=== PATIENT | female | born 1950 | race Caucasian/White ===

== ENCOUNTER → 2017-12-25 | Outpatient (CLI) | payer MEDICARE, OTHER ==
[~2017-12-25] MED LIST: ASPI81TA50 PO; CIPR500T87 PO; CITA20TA5 PO; CLON2TAB PO; DIAZ5TAB4 PO; DOCU-131 PO; ERGO500017 PO; FAMO-79 PO; FLUC50TA3 PO; INSU100I28 SQ-INSULIN; LEVO112T41 PO; LOVA40TA2 PO; METO10TA2 PO; METR500T PO; MORP15TA17 PO; MORP60TA34 PO; OXYC-302 PO; POTA20TA91 PO; PRED5TAB PO; PREG100C PO; TIZA4CAP PO
[2017-12-25 15:29] LABS: BASOPHILS # (AUTO) 0.19 x10^3/uL (0-0.1); BASOPHILS % (AUTO) 2 % (0-1); EOSINOPHILS # (AUTO) 0.38 x10^3/uL (0-0.4); EOSINOPHILS % (AUTO) 3 % (1-7); LYMPHOCYTES % (AUTO) 16 % (22-44); MD NO; MEAN CORPUSCULAR HEMOGLOBIN 23.2 pg (27.0-34.8); MEAN CORPUSCULAR HGB CONC 30.6 g/dL (32.4-35.8); MEAN CORPUSCULAR VOLUME 75.8 fL (80-100); MEAN PLATELET VOLUME 9.3 fL (7.4-10.4); MONOCYTES # (AUTO) 0.64 x10^3/uL (0.2-0.8); MONOCYTES % (AUTO) 5 % (2-9); NEUTROPHILS # (AUTO) 9.49 x10^3/uL (1.8-6.8); NEUTROPHILS % (AUTO) 75 % (42-75); PLATELET COUNT 434 x10^3/uL (130-400); RED BLOOD COUNT 3.33 x10^6/uL (3.82-5.3); RED CELL DISTRIBUTION WIDTH 17.9 % (9.6-15.2)
[2017-12-25 15:41] LABS: ALBUMIN 3.3 g/dL (3.4-5.0); ANION GAP 11 mmol/L (5-15); CALCIUM 8.7 mg/dL (8.5-10.1); CHLORIDE 97 mmol/L (98-107)
[2017-12-25 15:54] LABS: ALANINE AMINOTRANSFERASE 14 U/L (12-78); ALKALINE PHOSPHATASE 99 U/L (45-117); BILIRUBIN,TOTAL 0.5 mg/dL (0.2-1.0); CREATININE 0.71 mg/dL (0.55-1.02); T4 (THYROXINE) 8.3 mcg/dL (4.8-13.9); TOTAL PROTEIN 8.4 g/dL (6.4-8.2)
== END | disposition home or self-care (01) ==
LOC: CFH 12:12
PROVIDERS: ATTEND Nurse Practitioner Family
DX: I51.7 Cardiomegaly (principal); M47.894 Other spondylosis, thoracic region; D64.9 Anemia, unspecified; E03.9 Hypothyroidism, unspecified
CPT/HCPCS: 36415; 71046; 80053; 82565; 84436; 84443; 85025

== ENCOUNTER 2018-01-07 22:41 | Inpatient (IN) | payer MEDICARE, OTHER ==
[~2018-01-07] VITALS: Ht 149.9 cm; Wt 78.5 kg
[2018-01-07] MEDS ORDERED: CYAN50TA PO (23:02)
[2018-01-07] MEDS ORDERED: LEVO25TA4 PO (23:03)
[2018-01-08 00:09] LABS: MEAN CORPUSCULAR HEMOGLOBIN 22.8 pg (27.0-34.8); MEAN CORPUSCULAR HGB CONC 31.2 g/dL (32.4-35.8); MEAN CORPUSCULAR VOLUME 72.8 fL (80-100); MEAN PLATELET VOLUME 8.8 fL (7.4-10.4); PLATELET COUNT 484 x10^3/uL (130-400); RED BLOOD COUNT 2.45 x10^6/uL (3.82-5.3); RED CELL DISTRIBUTION WIDTH 18.6 % (9.6-15.2)
[2018-01-08 00:11] LABS: INTERNATIONAL NORMALIZED RATIO 1.05 (0.93-1.1); PROTHROMBIN TIME 10.8 Seconds (9.6-11.5)
[2018-01-08 00:14] LABS: ALANINE AMINOTRANSFERASE 10 U/L (12-78); ALBUMIN 2.8 g/dL (3.4-5.0); ANION GAP 11 mmol/L (5-15); CALCIUM 7.8 mg/dL (8.5-10.1); CHLORIDE 99 mmol/L (98-107); CREATININE 0.66 mg/dL (0.55-1.02)
[2018-01-08 00:16] LABS: ALKALINE PHOSPHATASE 95 U/L (45-117); BILIRUBIN,TOTAL 0.4 mg/dL (0.2-1.0); TOTAL PROTEIN 7.2 g/dL (6.4-8.2)
[2018-01-08 00:22] LABS: BASOPHILS # (AUTO) 0.09 x10^3/uL (0-0.1); BASOPHILS % (AUTO) 1 % (0-1); EOSINOPHILS # (AUTO) 0.04 x10^3/uL (0-0.4); EOSINOPHILS % (AUTO) 0 % (1-7); LYMPHOCYTES % (AUTO) 9 % (22-44); MD SCAN; MONOCYTES # (AUTO) 0.83 x10^3/uL (0.2-0.8); MONOCYTES % (AUTO) 4 % (2-9); NEUTROPHILS # (AUTO) 17.25 x10^3/uL (1.8-6.8); NEUTROPHILS % (AUTO) 87 % (42-75)
[2018-01-08] MEDS ORDERED: OXYMETAZOLINE NASAL SPRAY 0.05%, 15ML NAS ONE (02:00)
[2018-01-08] MEDS ORDERED: OXYMETAZOLINE NASAL SPRAY 0.05%, 15ML ONE (02:16)
[2018-01-08] MEDS ORDERED: GLUCAGON 1 MG IM PRN (03:30)
[2018-01-08] MEDS ORDERED: ONDANSETRON 2MG/ML, 2ML IVPush PRN (03:30)
[2018-01-08] MEDS ORDERED: DEXTROSE 50%, 50ML SYRINGE IVPush PRN (03:30)
[2018-01-08] MEDS ORDERED: DEXTROSE 4 GM TAB.CHEW PO PRN (03:30)
[2018-01-08] MEDS ORDERED: ACETAMINOPHEN 325 MG TABLET PO PRN (03:30)
[2018-01-08 03:41] VITALS: BP 101/60
[2018-01-08] MEDS: SODIUM CHLORIDE 0.9% 1,000 ML IV SCH ×2 (04:31→14:49)
[2018-01-08 05:31] LABS: BASOPHILS # (AUTO) 0.06 x10^3/uL (0-0.1); BASOPHILS % (AUTO) 0 % (0-1); EOSINOPHILS % (AUTO) 2 % (1-7); LYMPHOCYTES % (AUTO) 10 % (22-44); MD NO; MEAN CORPUSCULAR HEMOGLOBIN 22.5 pg (27.0-34.8); MEAN CORPUSCULAR HGB CONC 31.1 g/dL (32.4-35.8); MEAN CORPUSCULAR VOLUME 72.5 fL (80-100); MEAN PLATELET VOLUME 7.7 fL (7.4-10.4); MONOCYTES # (AUTO) 0.92 x10^3/uL (0.2-0.8); MONOCYTES % (AUTO) 4 % (2-9); NEUTROPHILS # (AUTO) 17.73 x10^3/uL (1.8-6.8); NEUTROPHILS % (AUTO) 84 % (42-75); PLATELET COUNT 496 x10^3/uL (130-400); RED BLOOD COUNT 2.19 x10^6/uL (3.82-5.3); RED CELL DISTRIBUTION WIDTH 18.6 % (9.6-15.2)
[2018-01-08 05:35] LABS: CULTURE INDICATED? YES; MICROSCOPIC INDICATED
[2018-01-08 05:43] LABS: TROPONIN I < 0.015 ng/mL (0.000-0.045)
[2018-01-08] MEDS: INSULIN LISPRO 100 UNITS/ML, PEN SQ-INSULIN SCH ×4 (07:00→20:56)
[2018-01-08 07:02] VITALS: BP 108/71
[2018-01-08] MEDS: LEVOTHYROXINE 25 MCG TABLET PO SCH (09:55)
[2018-01-08] MEDS: CYANOCOBALOMIN 100MCG TABLET PO SCH (09:55)
[2018-01-08] MEDS: IRON SUCROSE COMPLEX 100MG/5ML IV SCH (09:55)
[2018-01-08 11:48] LABS: TROPONIN I < 0.015 ng/mL (0.000-0.045)
[2018-01-08 13:48] VITALS: BP 112/78
[2018-01-08] MEDS: SODIUM CHLORIDE FLUSH 10ML SYR IVF SCH ×2 (14:48→20:55)
[2018-01-08] MEDS: CEFTRIAXONE PMX 1GM/50ML 50 ML IV SCH (16:16)
[2018-01-08 20:02] VITALS: BP 101/65
[2018-01-08] MEDS: SODIUM CHLORIDE NASAL SPRAY 45ML BOTTLE NAS PRN (22:44)
[2018-01-09 00:13] VITALS: BP 97/58
[2018-01-09] MEDS: SODIUM CHLORIDE 0.9% 1,000 ML IV SCH ×3 (02:17→22:34)
[2018-01-09 05:06] LABS: MEAN CORPUSCULAR HEMOGLOBIN 22.7 pg (27.0-34.8); MEAN CORPUSCULAR HGB CONC 30.9 g/dL (32.4-35.8); MEAN CORPUSCULAR VOLUME 73.7 fL (80-100); MEAN PLATELET VOLUME 8.7 fL (7.4-10.4); PLATELET COUNT 414 x10^3/uL (130-400); RED BLOOD COUNT 1.99 x10^6/uL (3.82-5.3); RED CELL DISTRIBUTION WIDTH 19.2 % (9.6-15.2)
[2018-01-09 05:17] LABS: ANION GAP 6 mmol/L (5-15); CALCIUM 7.7 mg/dL (8.5-10.1); CHLORIDE 106 mmol/L (98-107)
[2018-01-09] MEDS: SODIUM CHLORIDE NASAL SPRAY 45ML BOTTLE NAS PRN (05:37)
[2018-01-09 05:45] LABS: % IRON SATURATION 80 % (20-55); CREATININE 0.59 mg/dL (0.55-1.02); FOLATE LEVEL 16.7 ng/mL (3.1-17.5); IRON LEVEL 325 mcg/dL (50-170); TOTAL IRON BINDING CAPACITY 406 mcg/dL (250-450)
[2018-01-09 05:46] LABS: BASOPHILS # (AUTO) 0.06 x10^3/uL (0-0.1); BASOPHILS % (AUTO) 0 % (0-1); EOSINOPHILS # (AUTO) 0.22 x10^3/uL (0-0.4); EOSINOPHILS % (AUTO) 1 % (1-7); LYMPHOCYTES # (AUTO) 3.17 x10^3/uL (1-3.4); LYMPHOCYTES % (AUTO) 20 % (22-44); MD MORPH REVIEW ONLY; MONOCYTES % (AUTO) 6 % (2-9); NEUTROPHILS # (AUTO) 11.25 x10^3/uL (1.8-6.8); NEUTROPHILS % (AUTO) 72 % (42-75)
[2018-01-09 05:47] LABS: <PLATELET ESTIMATE> INCREASED; <PLT MORPHOLOGY> NORMAL PLT MORPH; ANISOCYTOSIS 1+; HYPOCHROMIA 1+; MICROCYTOSIS 1+; POLYCHROMASIA 1+; STOMATOCYTES 1+
[2018-01-09] MEDS: INSULIN LISPRO 100 UNITS/ML, PEN SQ-INSULIN SCH ×4 (07:00→20:56)
[2018-01-09 07:58] VITALS: BP 99/58
[2018-01-09] MEDS: CYANOCOBALOMIN 100MCG TABLET PO SCH (08:06)
[2018-01-09] MEDS: IRON SUCROSE COMPLEX 100MG/5ML IV SCH (08:07)
[2018-01-09] MEDS: SODIUM CHLORIDE FLUSH 10ML SYR IVF SCH ×2 (08:07→20:56)
[2018-01-09] MEDS: LEVOTHYROXINE 25 MCG TABLET PO SCH (08:07)
[2018-01-09] MEDS: CEFTRIAXONE PMX 1GM/50ML 50 ML IV SCH (14:17)
[2018-01-09 14:30] VITALS: BP 94/59
[2018-01-09 20:35] VITALS: BP 92/59
[2018-01-10 00:20] VITALS: BP 91/57
[2018-01-10 05:56] LABS: MEAN CORPUSCULAR HEMOGLOBIN 22.8 pg (27.0-34.8); MEAN CORPUSCULAR HGB CONC 30.7 g/dL (32.4-35.8); MEAN CORPUSCULAR VOLUME 74.3 fL (80-100); MEAN PLATELET VOLUME 7.9 fL (7.4-10.4); PLATELET COUNT 397 x10^3/uL (130-400); RED BLOOD COUNT 1.97 x10^6/uL (3.82-5.3); RED CELL DISTRIBUTION WIDTH 18.8 % (9.6-15.2)
[2018-01-10 06:27] LABS: MD MORPH REVIEW ONLY
[2018-01-10 06:28] LABS: BASOPHILS # (AUTO) 0.06 x10^3/uL (0-0.1); BASOPHILS % (AUTO) 0 % (0-1); EOSINOPHILS # (AUTO) 0.51 x10^3/uL (0-0.4); EOSINOPHILS % (AUTO) 3 % (1-7); LYMPHOCYTES # (AUTO) 2.88 x10^3/uL (1-3.4); LYMPHOCYTES % (AUTO) 18 % (22-44); MONOCYTES # (AUTO) 0.84 x10^3/uL (0.2-0.8); MONOCYTES % (AUTO) 5 % (2-9); NEUTROPHILS # (AUTO) 11.95 x10^3/uL (1.8-6.8); NEUTROPHILS % (AUTO) 74 % (42-75)
[2018-01-10 06:31] LABS: ANISOCYTOSIS 2+; MICROCYTOSIS 1+
[2018-01-10 06:32] LABS: POLYCHROMASIA 2+
[2018-01-10 06:33] LABS: <PLATELET ESTIMATE> ADEQUATE; <PLT MORPHOLOGY> NORMAL PLT MORPH; HYPOCHROMIA 2+
[2018-01-10] MEDS: INSULIN LISPRO 100 UNITS/ML, PEN SQ-INSULIN SCH ×4 (07:00→20:56)
[2018-01-10 07:40] VITALS: BP 100/60
[2018-01-10] MEDS ORDERED: MAALOX/HYOSCYAMINE/LIDOCAINE 45 ML BTL PO ONE (08:00)
[2018-01-10] MEDS: LEVOTHYROXINE 25 MCG TABLET PO SCH (08:21)
[2018-01-10] MEDS: CYANOCOBALOMIN 100MCG TABLET PO SCH (08:22)
[2018-01-10 08:41] LABS: TROPONIN I < 0.015 ng/mL (0.000-0.045)
[2018-01-10 08:47] LABS: MD YES; MEAN CORPUSCULAR HEMOGLOBIN 23.1 pg (27.0-34.8); MEAN CORPUSCULAR VOLUME 74.4 fL (80-100); PLATELET COUNT 401 x10^3/uL (130-400); RED BLOOD COUNT 2.02 x10^6/uL (3.82-5.3)
[2018-01-10] MEDS: SODIUM CHLORIDE FLUSH 10ML SYR IVF SCH ×2 (09:00→20:56)
[2018-01-10 10:50] LABS: BAND#(MANUAL) 0.15 x10^3/uL; BANDS%(MANUAL) 1 % (0-7); BASOS#(MANUAL) 0.15 x10^3/uL (0-0.1); BASOS% (MANUAL) 1 % (0-1); LYMPH#(MANUAL) 2.04 x10^3/uL (1-3.4); LYMPHS% (MANUAL) 14 % (22-44); MONOS#(MANUAL) 0.73 x10^3/uL (0.3-2.7); MONOS% (MANUAL) 5 % (2-9); NRBC % (MANUAL) 1 % (0-1); SEG#(MANUAL) 11.53 x10^3/uL (1.8-6.8); SEGS% (MANUAL) 79 % (42-75)
[2018-01-10 10:51] LABS: ANISOCYTOSIS 2+; MICROCYTOSIS 1+
[2018-01-10 10:52] LABS: <PLATELET ESTIMATE> INCREASED; <PLT MORPHOLOGY> NORMAL PLT MORPH; HYPOCHROMIA 2+; POLYCHROMASIA 1+
[2018-01-10] MEDS: CEFUROXIME 500 MG TABLET PO SCH ×2 (10:57→20:56)
[2018-01-10 13:35] VITALS: BP 100/63
[2018-01-10 19:22] VITALS: BP 109/64
[2018-01-11 00:05] VITALS: BP 113/72
[2018-01-11] MEDS ORDERED: SODIUM CHLORIDE 0.9% 1,000 ML IV SCH (03:14)
[2018-01-11] MEDS: INSULIN LISPRO 100 UNITS/ML, PEN SQ-INSULIN SCH ×2 (07:00→11:00)
[2018-01-11 07:45] VITALS: BP 95/54
[2018-01-11] MEDS: SODIUM CHLORIDE FLUSH 10ML SYR IVF SCH (08:01)
[2018-01-11] MEDS: CEFUROXIME 500 MG TABLET PO SCH (08:17)
[2018-01-11] MEDS: CYANOCOBALOMIN 100MCG TABLET PO SCH (08:18)
[2018-01-11] MEDS: LEVOTHYROXINE 25 MCG TABLET PO SCH (08:18)
[2018-01-11] MEDS ORDERED: CIPROFLOXACIN 500 MG TABLET PO SCH (09:00)
[2018-01-11 10:06] LABS: MEAN CORPUSCULAR HEMOGLOBIN 23.7 pg (27.0-34.8); MEAN CORPUSCULAR HGB CONC 30.5 g/dL (32.4-35.8); MEAN CORPUSCULAR VOLUME 77.7 fL (80-100); MEAN PLATELET VOLUME 8.6 fL (7.4-10.4); PLATELET COUNT 402 x10^3/uL (130-400); RED BLOOD COUNT 2.01 x10^6/uL (3.82-5.3); RED CELL DISTRIBUTION WIDTH 19.4 % (9.6-15.2)
[2018-01-11 10:30] LABS: MD YES
[2018-01-11 10:31] LABS: BAND#(MANUAL) 0.16 x10^3/uL; BANDS%(MANUAL) 1 % (0-7); BASOS#(MANUAL) 0.16 x10^3/uL (0-0.1); BASOS% (MANUAL) 1 % (0-1); EOS#(MANUAL) 0.32 x10^3/uL (0.0-0.4); EOS% (MANUAL) 2 % (1-7); LYMPH#(MANUAL) 2.56 x10^3/uL (1-3.4); LYMPHS% (MANUAL) 16 % (22-44); MONOS#(MANUAL) 0.32 x10^3/uL (0.3-2.7); MONOS% (MANUAL) 2 % (2-9); SEG#(MANUAL) 12.48 x10^3/uL (1.8-6.8); SEGS% (MANUAL) 78 % (42-75)
[2018-01-11 10:32] LABS: <PLATELET ESTIMATE> INCREASED; <PLT MORPHOLOGY> NORMAL PLT MORPH; ANISOCYTOSIS 2+; HYPOCHROMIA 2+; MICROCYTOSIS 1+; POLYCHROMASIA 1+; STOMATOCYTES 1+
[2018-01-11] MEDS ORDERED: CIPR500T87 PO ×2 (11:19→12:13)
== END 2018-01-11 14:11 | disposition home or self-care (01) | DRG 150 ==
LOC: ED 23:59 → SUATTDRO 01-08 02:58 → EDIP 01-08 03:06 → 4EST 01-08 03:32
PROVIDERS: ADMIT Hospitalist; ATTEND Hospitalist
PROC: 2Y41X5Z Packing of Nasal Region using Packing Material (ICD-10-PCS; principal; 2018-01-08)
DX: R04.0 Epistaxis (principal); E43 Unspecified severe protein-calorie malnutrition; I48.0 Paroxysmal atrial fibrillation; D62 Acute posthemorrhagic anemia; E87.1 Hypo-osmolality and hyponatremia; E11.65 Type 2 diabetes mellitus with hyperglycemia; G47.419 Narcolepsy without cataplexy; N39.0 Urinary tract infection, site not specified; E03.9 Hypothyroidism, unspecified; D50.9 Iron deficiency anemia, unspecified; E66.9 Obesity, unspecified; K21.9 Gastro-esophageal reflux disease without esophagitis; R55 Syncope and collapse; R79.89 Other specified abnormal findings of blood chemistry; N20.0 Calculus of kidney; Z87.442 Personal history of urinary calculi; Z68.35 Body mass index [BMI] 35.0-35.9, adult; Z88.2 Allergy status to sulfonamides; Z88.8 Allergy status to other drugs, medicaments and biological substances; Z90.710 Acquired absence of both cervix and uterus; Z90.49 Acquired absence of other specified parts of digestive tract
CPT/HCPCS: 36415; 71045; 80048; 80053; 81001; 82607; 82746; 82962; 83036; 83540; 83550; 84484; 85025; 85610; 85730; 86850; 86900; 87040; 87077; 87086; 87186; 93005; 93306; 99285; J0696; J1756; J1815; J7030

== ENCOUNTER 2018-01-21 14:03 | Emergency (ER) | payer MEDICARE, OTHER ==
[~2018-01-21 14:03] MED LIST changes: +CYAN50TA PO; +LEVO25TA4 PO
[2018-01-21 14:45] LABS: INTERNATIONAL NORMALIZED RATIO 1.03 (0.93-1.1); PROTHROMBIN TIME 10.7 Seconds (9.6-11.5)
[2018-01-21 14:47] LABS: MEAN CORPUSCULAR HEMOGLOBIN 23.8 pg (27.0-34.8); MEAN CORPUSCULAR HGB CONC 30.3 g/dL (32.4-35.8); MEAN CORPUSCULAR VOLUME 78.7 fL (80-100); MEAN PLATELET VOLUME 8.7 fL (7.4-10.4); PLATELET COUNT 430 x10^3/uL (130-400); RED BLOOD COUNT 2.77 x10^6/uL (3.82-5.3); RED CELL DISTRIBUTION WIDTH 24.8 % (9.6-15.2)
[2018-01-21 14:48] LABS: HEMOGRAM NOTE RECHECKED
[2018-01-21 14:49] LABS: ALBUMIN 3.3 g/dL (3.4-5.0); ANION GAP 12 mmol/L (5-15); CALCIUM 8.5 mg/dL (8.5-10.1); CHLORIDE 107 mmol/L (98-107)
[2018-01-21] MEDS ORDERED: SILVER NITRATE STICK TP ONE (15:01)
[2018-01-21] MEDS ORDERED: LIDOCAINE-MPF 1%, 2ML ONE (15:01)
[2018-01-21] MEDS ORDERED: PHENYLEPHRINE NASAL 1%, 15ML SPRAY ONE (15:01)
[2018-01-21 15:02] LABS: MD YES
[2018-01-21 15:05] LABS: BAND#(MANUAL) 0.12 x10^3/uL; BANDS%(MANUAL) 1 % (0-7); LYMPH#(MANUAL) 0.86 x10^3/uL (1-3.4); LYMPHS% (MANUAL) 7 % (22-44); MONOS#(MANUAL) 0.37 x10^3/uL (0.3-2.7); MONOS% (MANUAL) 3 % (2-9); SEG#(MANUAL) 10.95 x10^3/uL (1.8-6.8); SEGS% (MANUAL) 89 % (42-75)
[2018-01-21 15:06] LABS: <PLATELET ESTIMATE> ADEQUATE; ANISOCYTOSIS 2+; HYPOCHROMIA 2+; MICROCYTOSIS 1+; POLYCHROMASIA 1+
[2018-01-21 15:07] LABS: <PLT MORPHOLOGY> NORMAL PLT MORPH
[2018-01-21 18:27] VITALS: BP 104/51
== END 2018-01-21 18:29 | disposition home or self-care (01) ==
LOC: ED 17:52
DX: R04.0 Epistaxis (principal); D50.0 Iron deficiency anemia secondary to blood loss (chronic); E11.9 Type 2 diabetes mellitus without complications; I48.91 Unspecified atrial fibrillation; K21.9 Gastro-esophageal reflux disease without esophagitis
CPT/HCPCS: 30901; 36415; 80048; 82040; 85025; 85610; 85730; 99284

== ENCOUNTER → 2019-01-07 | Outpatient (CLI) | payer MEDICARE, OTHER ==
[~2019-01-07] MED LIST changes: -CITA20TA5 PO; +CITA20TA6 PO
== END | disposition home or self-care (01) ==
LOC: CFH 12:42
PROVIDERS: ATTEND Family Medicine
DX: M81.8 Other osteoporosis without current pathological fracture (principal)

== ENCOUNTER → 2019-02-12 | Outpatient (CLI) | payer MEDICARE, OTHER | END | disposition home or self-care (01) | LOC: CFH 12:45 | PROVIDERS: ATTEND Family Medicine | DX: J81.1 Chronic pulmonary edema (principal); I51.7 Cardiomegaly; I50.9 Heart failure, unspecified; J98.4 Other disorders of lung | CPT/HCPCS: 71046 ==

== ENCOUNTER → 2019-03-22 | Outpatient (CLI) | payer MEDICARE, OTHER ==
[2019-03-22 15:53] LABS: HCT (SEDRATE) 45.2 % (34.6-47.8)
[2019-03-22 15:54] LABS: BASOPHILS # (AUTO) 0.06 x10^3/uL (0-0.1); BASOPHILS % (AUTO) 1 % (0-1); EOSINOPHILS # (AUTO) 0.46 x10^3/uL (0-0.4); EOSINOPHILS % (AUTO) 4 % (1-7); LYMPHOCYTES # (AUTO) 2.22 x10^3/uL (1-3.4); LYMPHOCYTES % (AUTO) 21 % (22-44); MD NO; MEAN CORPUSCULAR HEMOGLOBIN 29.3 pg (27.0-34.8); MEAN CORPUSCULAR HGB CONC 32.6 g/dL (32.4-35.8); MEAN CORPUSCULAR VOLUME 89.7 fL (80-100); MEAN PLATELET VOLUME 9.7 fL (7.4-10.4); MONOCYTES # (AUTO) 0.58 x10^3/uL (0.2-0.8); MONOCYTES % (AUTO) 6 % (2-9); NEUTROPHILS # (AUTO) 7.09 x10^3/uL (1.8-6.8); NEUTROPHILS % (AUTO) 68 % (42-75); PLATELET COUNT 314 x10^3/uL (130-400); RED BLOOD COUNT 4.96 x10^6/uL (3.82-5.3); RED CELL DISTRIBUTION WIDTH 13.4 % (9.6-15.2)
[2019-03-22 16:01] LABS: ALBUMIN 3.5 g/dL (3.4-5.0); ANION GAP 10 mmol/L (5-15); CALCIUM 9.3 mg/dL (8.5-10.1); CHLORIDE 99 mmol/L (98-107)
[2019-03-22 16:09] LABS: % IRON SATURATION 33 % (20-55); CREATININE 0.79 mg/dL (0.55-1.02); IRON LEVEL 102 mcg/dL (50-170); TOTAL IRON BINDING CAPACITY 307 mcg/dL (250-450)
[2019-03-22 16:10] LABS: ALANINE AMINOTRANSFERASE 25 U/L (12-78); ALKALINE PHOSPHATASE 117 U/L (45-117); BILIRUBIN,TOTAL 0.7 mg/dL (0.2-1.0); FREE T4 (FREE THYROXINE) 0.97 ng/dL (0.76-1.46); TOTAL PROTEIN 10.1 g/dL (6.4-8.2)
[2019-03-22 16:48] LABS: HEMOGLOBIN A1C 6.6 % (4.2-6.3)
== END | disposition home or self-care (01) ==
LOC: CFH 14:16
PROVIDERS: ATTEND Family Medicine
DX: E03.9 Hypothyroidism, unspecified (principal); D50.9 Iron deficiency anemia, unspecified; D72.89 Other specified disorders of white blood cells; E11.65 Type 2 diabetes mellitus with hyperglycemia; R70.0 Elevated erythrocyte sedimentation rate
CPT/HCPCS: 36415; 80053; 82728; 83036; 83540; 83550; 84439; 84443; 84480; 85025; 85651; 86038; 86140; 86430; 86431

== ENCOUNTER 2019-04-28 14:15 | Emergency (ER) | payer MEDICARE, OTHER ==
[~2019-04-28] VITALS: Ht 149.9 cm; Wt 60.0 kg
--- NOTE | 2019-04-28 14:53 | NUR ---
PT RESTING ON BED, USING OWN CELL PHONE. STATES SHE'S HERE FOR "LOW OXYGEN", CAME TO ED FROM PHYSICIAN OFFICE. PT'S SPOUSE IN ROOM. WENT ON A Digital [employer]ion CRUISE IN DECEMBER; COUGH STARTED AFTER CRUISE. HAS HOME OXYGEN CONCENTRATOR: USES 3-1/2L NC.
[2019-04-28 14:59] LABS: BASOPHILS # (AUTO) 0.01 x10^3/uL (0-0.1); BASOPHILS % (AUTO) 0 % (0-1); EOSINOPHILS # (AUTO) 0.29 x10^3/uL (0-0.4); EOSINOPHILS % (AUTO) 3 % (1-7); LYMPHOCYTES # (AUTO) 1.67 x10^3/uL (1-3.4); LYMPHOCYTES % (AUTO) 18 % (22-44); MD NO; MEAN CORPUSCULAR HEMOGLOBIN 29.9 pg (27.0-34.8); MEAN CORPUSCULAR HGB CONC 32.9 g/dL (32.4-35.8); MEAN PLATELET VOLUME 9.2 fL (7.4-10.4); MONOCYTES # (AUTO) 0.56 x10^3/uL (0.2-0.8); MONOCYTES % (AUTO) 6 % (2-9); NEUTROPHILS # (AUTO) 6.76 x10^3/uL (1.8-6.8); NEUTROPHILS % (AUTO) 73 % (42-75); PLATELET COUNT 261 x10^3/uL (130-400); RED BLOOD COUNT 4.71 x10^6/uL (3.82-5.3); RED CELL DISTRIBUTION WIDTH 13.8 % (9.6-15.2)
[2019-04-28] MEDS ORDERED: ALBUTEROL/IPRATROPIUM 2.5MG/0.5MG, 3 ML ONE (14:59)
[2019-04-28] MEDS ORDERED: SODIUM CHLORIDE FLUSH 10ML SYR IVF ONE (15:00)
[2019-04-28] MEDS ORDERED: ALBUTEROL/IPRATROPIUM 2.5MG/0.5MG, 3 ML NPPB ONE (15:00)
--- NOTE | 2019-04-28 15:01 | NUR ---
RESP TECH BS FOR [facility] TX.
--- NOTE | 2019-04-28 15:09 | NUR ---
NEB TX COMPLETED; O2 REAPPLIED 4LNC; O2 SAT INCREASED TO 92%. O2 INCREASED TO 5LNC; SAT INCREASED TO 94%.
[2019-04-28 15:12] LABS: ALANINE AMINOTRANSFERASE 23 U/L (12-78); ALBUMIN 3.3 g/dL (3.4-5.0); ANION GAP 7 mmol/L (5-15); CALCIUM 9.3 mg/dL (8.5-10.1); CHLORIDE 104 mmol/L (98-107)
[2019-04-28 15:16] LABS: ALKALINE PHOSPHATASE 104 U/L (45-117); BILIRUBIN,TOTAL 0.5 mg/dL (0.2-1.0); TOTAL PROTEIN 9.8 g/dL (6.4-8.2); TROPONIN I < 0.015 ng/mL (0.000-0.045)
--- NOTE | 2019-04-28 15:26 | NUR ---
EKG BS. CARDIAC & VS MONITORING CONTINUING.
[2019-04-28] MEDS ORDERED: OMNIPAQUE 350 MG/ML, 100ML BOTTLE ONE (16:07)
--- NOTE | 2019-04-28 16:13 | NUR ---
RESTING QUIETLY, PLAYING ONLINE GAME ON IPAD. CARDIAC & VS MONITORING CONTINUING, O2 AT 5LNC. SIDE RAILS UP X2, CALL LIGHT W/IN REACH. SPOUSE IN ROOM.
[2019-04-28 18:15] VITALS: BP 126/73
== END 2019-04-28 18:18 | disposition home or self-care (01) ==
LOC: ED 16:42
DX: J44.9 Chronic obstructive pulmonary disease, unspecified (principal)
CPT/HCPCS: 36415; 71275; 80053; 83880; 84484; 85025; 93005; 94640; 99284; J7620; Q9967